=== PATIENT | female | born 1985 | race Caucasian/White ===

== ENCOUNTER 2016-09-24 11:38 | Emergency (ER) | payer OTHER ==
[~2016-09-24] VITALS: Ht 160 cm; Wt 72.1 kg
[2016-09-24] MEDS ORDERED: IV NORMAL SALINE 1000ML BAG 1,000 ML IV SCH (11:42)
[2016-09-24] MEDS ORDERED: ONDANSETRON PF 4 MG/2 ML VIAL. IV ONE (11:45)
[2016-09-24] MEDS ORDERED: FAMOTIDINE 20 MG/2 ML VIAL IVP ONE (11:45)
[2016-09-24 11:50] VITALS: BP 125/58
[2016-09-24] MEDS ORDERED: fentaNYL PF VIAL 100 MCG/2 ML VIAL IV PRN (12:00)
[2016-09-24 12:31] LABS: BILIRUBIN,URINE NEGATIVE (NEG); GLUCOSE,URINE NEGATIVE (NEG); NITRITE,URINE NEGATIVE (NEG); PROTEIN,URINE NEGATIVE (NEG-TRACE); UROBILINOGEN,URINE 0.2 mg/dL (0.2 mg/dL)
[2016-09-24 12:33] LABS: BASO % 0 % (0-3); EOS % 1 % (0-3); HEMATOCRIT 41.6 % (36.0-47.0); LYMPH # 1.9 x10^3/uL (1.0-4.8); LYMPH % 19 % (24-48); MEAN CORPUSCULAR HEMOGLOBIN 32 pg (25-35); MEAN CORPUSCULAR HGB CONC 34 g/dL (31-37); MEAN CORPUSCULAR VOLUME 95 fL (79-100); MONO % 6 % (0-9); NEUT % 73 % (31-73); PLATELET COUNT 196 x10^3/uL (140-400); RED BLOOD COUNT 4.36 x10^6/uL (3.50-5.40); RED CELL DISTRIBUTION WIDTH 12.9 % (11.5-14.5); WHITE BLOOD COUNT 9.8 x10^3/uL (4.0-11.0)
[2016-09-24 12:35] LABS: CALCIUM 9.6 mg/dL (8.5-10.1); CREATININE 0.8 mg/dL (0.6-1.0); GFR 85.4
[2016-09-24 12:37] LABS: BARBITURATES NEG (NEG); BENZODIAZEPINES NEG (NEG); CANNABINOIDS NEG (NEG); COCAINE NEG (NEG); METHADONE NEG (NEG); OPIATES NEG (NEG); PHENCYCLIDINE NEG (NEG)
[2016-09-24 12:41] LABS: ALBUMIN 4.4 g/dL (3.4-5.0); DIRECT BILIRUBIN 0.3 mg/dL (0.0-0.2); TOTAL BILIRUBIN 1.1 mg/dL (0.2-1.0); TOTAL PROTEIN 7.8 g/dL (6.4-8.2)
[2016-09-24 12:42] LABS: BACTERIA,URINE MANY /HPF (0-FEW); SQUAMOUS EPITHELIAL CELL,UR MANY /LPF
[2016-09-24] MEDS ORDERED: CONTRAST GIVEN MC PRN (13:00)
[2016-09-24] MEDS ORDERED: IOHEXOL 300 MG/ML 75 ML VIAL IV ONE (13:00)
--- NOTE | 2016-09-24 13:50 | RAD ---
Indication left upper quadrant pain. Nausea. Contrast imaging through the abdomen and pelvis was performed. 75 cc of Omnipaque 300 was administered intravenously. No oral contrast was administered. Note is made of a previous examination 5 years ago. The lung bases are clear. The liver and spleen appear unremarkable. The gallbladder is largely contracted but grossly normal. No pancreatic abnormality is seen. No adrenal or renal pathology is seen. No mass inflammatory process or acute finding in the abdomen is apparent. In the pelvis no mass inflammatory process or acute finding is seen. IUD is noted. IMPRESSION: No acute or significant finding seen in the abdomen or pelvis
[2016-09-24] MEDS ORDERED: FAMO20TA5 PO (14:18)
--- NOTE | 2016-09-24 14:18 | PHYS DOC ---
Past Medical History Past Medical History: Other Additional Past Medical Histor: ENDOMETRIOSIS Past Surgical History: Other Additional Past Surgical Histo: LAPAROSCOPYx3 Alcohol Use: Heavy Drug Use: None Adult General Chief Complaint Chief Complaint: ABDOMINAL PAIN HPI HPI Patient is a 30 year old female who presents from urgent care clinic with left upper quadrant pain associated bloating. States she felt constipated yesterday associated with bloating, so she took MiraLAX that resulted in a bowel movement. She notes constant left upper quadrant abdominal pain that is severe, achy, nonradiating. She denies nausea or vomiting, fever or chills, dark or bloody stools, dysuria, hematuria, back pain, chest pain, cough, dyspnea. She does note recent alcohol use. She has no aggravating or alleviating factors. Review of Systems Review of Systems Constitutional: Denies fever or chills [] Eyes: Denies change in visual acuity, redness, or eye pain [] HENT: Denies nasal congestion or sore throat [] Respiratory: Denies cough or shortness of breath [] Cardiovascular: No additional information not addressed in HPI [] GI: Denies nausea, vomiting, bloody stools or diarrhea [] : Denies dysuria or hematuria [] Musculoskeletal: Denies back pain or joint pain [] Integument: Denies rash or skin lesions [] Neurologic: Denies headache, focal weakness or sensory changes [] Endocrine: Denies polyuria or polydipsia [] Current Medications Current Medications Current Medications Medications (Trade) Dose Ordered Sig/Dano Start Time Stop Time Status Last Admin Dose Admin Famotidine (Pepcid) 20 mg 1X ONCE 09/24/16 11:45 09/24/16 12:02 DC 09/24/16 12:13 20 MG Fentanyl Citrate (Fentanyl 2ml Vial) 50 mcg PRN Q15MIN PRN 09/24/16 12:00 09/24/16 14:40 DC 09/24/16 12:12 50 MCG Info (Do NOT chart on this entry -- for MONITORING) 1 each PRN DAILY PRN 09/24/16 13:00 09/24/16 14:40 DC Iohexol (Omnipaque 300 Mg/ml) 75 ml 1X ONCE 09/24/16 13:00 09/24/16 13:01 DC 09/24/16 13:13 75 ML Multi-Ingredient Mouthwash/Gargle (Gi Cocktail Single Dose) 15 ml 1X ONCE 09/24/16 14:30 09/24/16 14:31 DC 09/24/16 14:21 15 ML Ondansetron HCl (Zofran) 4 mg 1X ONCE 09/24/16 11:45 09/24/16 12:02 DC 09/24/16 12:12 4 MG Sodium Chloride 1,000 ml @ 1,000 mls/hr Q1H 09/24/16 11:42 09/24/16 12:41 DC 09/24/16 12:12 1,000 MLS/HR Allergies Allergies Allergies Coded Allergies Type Severity Reaction Last Updated Verified Penicillins Allergy Intermediate HIVES 09/24/16 Yes Sulfa (Sulfonamide Antibiotics) Allergy Intermediate HIVES 09/24/16 Yes Physical Exam Physical Exam Constitutional: Well developed, well nourished, no acute distress, non-toxic appearance. [] HENT: Normocephalic, atraumatic, bilateral external ears normal, oropharynx moist, nose normal. [] Eyes: PERRLA, EOMI. [] Neck: Normal range of motion, supple. [] Cardiovascular:Heart rate regular rhythm [] Lungs & Thorax: Bilateral breath sounds clear to auscultation [] Abdomen: Bowel sounds normal, soft, moderate left upper quadrant tenderness, no guarding or rebound. [] Skin: Warm, dry, no erythema, no rash. [] Back: No tenderness, no CVA tenderness. [] Extremities: No tenderness, ROM intact, no edema. [] Neurologic: Alert and oriented X 3, normal motor function, normal sensory function, no focal deficits noted. [] Psychologic: Affect normal, judgement normal, mood normal. [] Current Patient Data Vital Signs Vital Signs Date Time Temp Pulse Resp B/P (MAP) Pulse Ox O2 Delivery O2 Flow Rate FiO2 09/24/16 11:50 98.0 108 18 125/58 (80) 98 Room Air 98.0 Lab Values Laboratory Tests Test 09/24/16 11:24 09/24/16 12:03 09/24/16 12:10 POC Urine HCG, Qualitative Hcg negative (Negative) Urine Collection Type Unknown Urine Color Yellow Urine Clarity Clear Urine pH 6.0 Urine Specific [place] 1.020 Urine Protein Negative mg/dL (NEG-TRACE) Urine Glucose (UA) Negative mg/dL (NEG) Urine Ketones (Stick) Negative mg/dL (NEG) Urine Blood Trace (NEG) Urine Nitrite Negative (NEG) Urine Bilirubin Negative (NEG) Urine Urobilinogen Dipstick 0.2 mg/dL (0.2 mg/dL) Urine Leukocyte Esterase Moderate (NEG) Urine RBC 1-2 /HPF (0-2) Urine WBC 11-20 /HPF (0-4) Urine Squamous Epithelial Cells Many /LPF Urine Bacteria Many /HPF (0-FEW) Urine Mucus Marked /LPF Urine Opiates Screen Neg (NEG) Urine Methadone Screen Neg (NEG) Urine Barbiturates Neg (NEG) Urine Phencyclidine Screen Neg (NEG) Urine Amphetamine/Methamphetamine Neg (NEG) Urine Benzodiazepines Screen Neg (NEG) Urine Cocaine Screen Neg (NEG) Urine Cannabinoids Screen Neg (NEG) Urine Ethyl Alcohol Neg (NEG) White Blood Count 9.8 x10^3/uL (4.0-11.0) Red Blood Count 4.36 x10^6/uL (3.50-5.40) Hemoglobin 14.0 g/dL (12.0-15.5) Hematocrit 41.6 % (36.0-47.0) Mean Corpuscular Volume 95 fL (79-100) Mean Corpuscular Hemoglobin 32 pg (25-35) Mean Corpuscular Hemoglobin Concent 34 g/dL (31-37) Red Cell Distribution Width 12.9 % (11.5-14.5) Platelet Count 196 x10^3/uL (140-400) Neutrophils (%) (Auto) 73 % (31-73) Lymphocytes (%) (Auto) 19 % (24-48) L Monocytes (%) (Auto) 6 % (0-9) Eosinophils (%) (Auto) 1 % (0-3) Basophils (%) (Auto) 0 % (0-3) Neutrophils # (Auto) 7.2 x10^3uL (1.8-7.7) Lymphocytes # (Auto) 1.9 x10^3/uL (1.0-4.8) Monocytes # (Auto) 0.6 x10^3/uL (0.0-1.1) Eosinophils # (Auto) 0.1 x10^3/uL (0.0-0.7) Basophils # (Auto) 0.0 x10^3/uL (0.0-0.2) Sodium Level 139 mmol/L (136-145) Potassium Level 4.0 mmol/L (3.5-5.1) Chloride Level 101 mmol/L (98-107) Carbon Dioxide Level 29 mmol/L (21-32) Anion Gap 9 (6-14) Blood Urea Nitrogen 12 mg/dL (7-20) Creatinine 0.8 mg/dL (0.6-1.0) Estimated GFR (Cockcroft-Gault) 85.4 Glucose Level 94 mg/dL (70-99) Calcium Level 9.6 mg/dL (8.5-10.1) Total Bilirubin 1.1 mg/dL (0.2-1.0) H Direct Bilirubin 0.3 mg/dL (0.0-0.2) H Aspartate Amino Transferase (AST) 18 U/L (15-37) Alanine Aminotransferase (ALT) 28 U/L (14-59) Alkaline Phosphatase 106 U/L (46-116) Total Protein 7.8 g/dL (6.4-8.2) Albumin 4.4 g/dL (3.4-5.0) Lipase 124 U/L (73-393) Laboratory Tests 09/24/16 12:10 Laboratory Tests 09/24/16 12:10 Radiology/Procedures Radiology/Procedures CT abdomen and pelvis with IV contrast IMPRESSION: No acute or significant finding seen in the abdomen or pelvis DICTATED and SIGNED BY: PRESLEY GUTIERREZ MD DATE: 09/24/16 4334 Course & Med Decision Making Course & Med Decision Making Pertinent Labs and Imaging studies reviewed. (See chart for details) Workup is unremarkable. She is feeling better after medications. Discussed she likely has gastritis related to alcohol use. Discussed to avoid NSAIDs and alcohol. Return precautions given. She understands and agrees with plan. Dragon Disclaimer Dragon Disclaimer This electronic medical record was generated, in whole or in part, using a voice recognition dictation system. Departure Departure Impression: Primary Impression: Left upper quadrant abdominal pain of unknown etiology Disposition: 01 HOME, SELF-CARE Condition: STABLE Referrals: NO PCP (PCP) Patient Instructions: Gastritis, Adult, [id number] Additional Instructions: Take nitrofurantoin for possible UTI. Take famotidine to help with likely gastritis. Avoid alcohol, ibuprofen and naproxen as this may make her pain worse. Follow-up with your primary care doctor within one week. Please call GI clinic for appointment at [phone]. Return for any concerns. Scripts Nitrofurantoin Macrocrystal (NITROFURANTOIN) 100 Mg Capsule 1 CAP PO BID, #10 CAP Prov: Bernice THOMAS MD 09/24/16 Famotidine (FAMOTIDINE) 20 Mg Tablet 20 MG PO BID, #30 TAB Prov: Bernice THOMAS MD 09/24/16 Bernice THOMAS MD September 24, 2016 14:18
[2016-09-24] MEDS ORDERED: LIDO:MAALOX:DONNATAL 1:1:1 15 ML SINGLE DOSE SWSW ONE (14:30)
[2016-09-24] MEDS ORDERED: NITR100C PO (14:36)
== END 2016-09-24 14:40 | disposition home or self-care (01) ==
LOC: ER 11:38
DX: R10.12 Left upper quadrant pain (principal); R14.0 Abdominal distension (gaseous); K59.00 Constipation, unspecified; Z88.0 Allergy status to penicillin; Z88.2 Allergy status to sulfonamides
CPT/HCPCS: 36415; 74177; 80048; 80076; 80305; 80320; 81001; 81025; 83690; 85027; 87086; 96361; 96374; 96375; 99285; J2405; J3010; J7030; Q9967; S0028; G0481

== ENCOUNTER → 2016-10-02 | Day surgery (SDC) | payer BC ==
[~2016-10-02] MED LIST: CYAN10005 PO; FAMO20TA5 PO; HYDROmorphone 2 MG/ML VIAL IV PRN; IV RINGERS,LACTATED 1000ML 1,000 ML IV SCH; LIDOCAINE 1% 1 ML SYRINGE. ID PRN; LIDOCAINE 2% PF Vial for OR 5 ML VIAL. ONE; MORPHINE SULFATE 2 MG/ML DISP.SYRIN. IV PRN; NITR100C PO; ONDANSETRON PF 4 MG/2 ML VIAL. IV PRN; PROCHLORPERAZINE 10 MG/2 ML VIAL. IV PRN; PROPOFOL 20 ML IV ONE; fentaNYL PF VIAL 100 MCG/2 ML VIAL IV PRN
[2016-10-02 10:17] LABS: NEG OBC UR NEG; POS OBC UR POS
[2016-10-02 12:00] VITALS: BP 105/65
--- NOTE | 2016-10-06 13:44 | PATHOLOGY ---
PATHOLOGY REPORT * * * * * * * * FINAL DIAGNOSIS: A. Small bowel biopsy: - No significant pathologic abnormalities. B. Gastric biopsy, antrum: - Mild chronic gastritis. C. Esophageal biopsy, distal esophagus: - Segments of hyperplastic squamous esophageal mucosa and esophagogastric mucosa showing chronic inflammation, consistent with reflux esophagitis. COMMENT: Sections of the small bowel biopsy reveal segments of duodenal and small intestine mucosa. Where best oriented, the mucosal villi appear normal. There are no sprue-like changes or significant inflammatory changes. Sections of the gastric biopsy reveal gastric antral and gastroduodenal mucosa showing mild chronic inflammation. An immunoperoxidase stain for Helicobacter is obtained. No Helicobacter organisms are identified. There is no evidence of malignancy. Sections of the distal esophageal biopsy reveal segments of tangentially oriented, hyperplastic squamous esophageal mucosa and esophagogastric mucosa showing mild to moderate chronic inflammation. The findings are consistent with reflux esophagitis. There is no evidence of Melendez's change, dysplasia, or malignancy. REPORT ELECTRONICALLY SIGNED BY: Bakari Alegria M.D. DATE/TIME: 10/06/2016 13:44 * * * * * * * * GROSS PATHOLOGY: A. Received in formalin labeled "Jono, Camillia N, small bowel BX," are 2 segments of subramanian soft tissue measuring 1.0 x 0.3 x 0.2 cm in aggregate dimensions and ranging from 0.5 to 0.5 cm in maximum dimension. The specimen is submitted entirely in cassette A1. B. Received in formalin labeled " Jono, Camillia N, gastric antrum BX," are 2 segments of subramanian soft tissue measuring 0.9 x 0.3 x 0.2 cm in aggregate dimensions and ranging from 0.2 to 0.7 cm in maximum dimension. The specimen is submitted entirely in cassette B1. C. Received in formalin labeled " Jono, Camillia N, distal esophagus BX," are 4 segments of subramanian soft tissue measuring 0.8 x 0.2 x 0.2 cm in aggregate dimensions and ranging from 0.2 to 0.2 cm in maximum dimension. The specimen is submitted entirely in cassette C1. (CALI; 10/03/2016) INITIAL CPT CODE(S): A; 74222 B; 23525, 28482 C; 19395 Professional services performed by [employer] [place] [address] Technical services performed by [facility] at [address] [place] [address], [address], [place] [address]. SPECIMEN(S) RECEIVED: A.Small bowel biopsy B.Gastric antral biopsy C.Distal esophageal biopsy CLINICAL HISTORY: Abdominal pain, bloating PATIENT: ZAID TOLENTINO /AGE: 712/02/1985 (Age: 30) PATIENT #: [id number] ALT CASE #: SPECIMEN COLLECTION DATE: 10/02/2016 SPECIMEN RECEIVED DATE: 10/02/2016 [facility] - [address] [place] [address] - PHONE: [phone] * * * END OF REPORT * * *
== END | disposition home or self-care (01) ==
LOC: ENDOS 09:32
PROVIDERS: ATTEND Internal Medicine Gastroenterology
DX: K29.70 Gastritis, unspecified, without bleeding (principal); K21.0 Gastro-esophageal reflux disease with esophagitis; Z88.0 Allergy status to penicillin; Z88.2 Allergy status to sulfonamides; Z83.3 Family history of diabetes mellitus; Z72.89 Other problems related to lifestyle; Z87.891 Personal history of nicotine dependence
CPT/HCPCS: 43239; 81025; 88305; 88342; J2704

== ENCOUNTER → 2016-10-09 | Outpatient (CLI) | payer BC ==
[2016-10-02 12:00] VITALS: BP 105/65
[~2016-10-09] VITALS: Ht 160 cm; Wt 72.1 kg
[~2016-10-09] MED LIST changes: -HYDROmorphone 2 MG/ML VIAL IV PRN; -IV RINGERS,LACTATED 1000ML 1,000 ML IV SCH; -LIDOCAINE 1% 1 ML SYRINGE. ID PRN; -LIDOCAINE 2% PF Vial for OR 5 ML VIAL. ONE; -MORPHINE SULFATE 2 MG/ML DISP.SYRIN. IV PRN; -ONDANSETRON PF 4 MG/2 ML VIAL. IV PRN; -PROCHLORPERAZINE 10 MG/2 ML VIAL. IV PRN; -PROPOFOL 20 ML IV ONE; +SINCALIDE 1.44 MCG in IV NORMAL SALINE 50ML 30 ML IV ONE; -fentaNYL PF VIAL 100 MCG/2 ML VIAL IV PRN
--- NOTE | 2016-10-09 15:09 | RAD ---
Radionuclide hepatobiliary scan with gallbladder ejection fraction, 10/09/2016: History: Epigastric pain Following IV injection of 5.5 mCi of technetium 99m Choletec there was prompt uptake of the radionuclide from the blood stream by the liver. Activity is present in the bile ducts and gallbladder at 10 minutes. Small bowel activity develops at 15 minutes. Additional imaging of the gallbladder was then performed following IV injection of 1.4 mcg of cholecystokinin. The gallbladder ejection fraction was calculated at 35%. 30-50% is considered to be the borderline low range. IMPRESSION: 1. No evidence of cystic duct or common bile duct obstruction. 2. The gallbladder ejection fraction is 35%.
== END | disposition home or self-care (01) ==
LOC: NM 11:29
PROVIDERS: ATTEND Internal Medicine Gastroenterology
DX: R10.11 Right upper quadrant pain (principal); R11.10 Vomiting, unspecified
CPT/HCPCS: 78226; 96374; 96375; A9537; J2805

== ENCOUNTER 2016-10-29 09:54 | Day surgery (SDC) | payer BC ==
[~2016-10-29] VITALS: Ht 160 cm; Wt 158.8 kg
[~2016-10-29 09:54] MED LIST changes: +BUPIVACAINE-EPI 0.5%-1:200000 50 ML VIAL. ONE; +DESFLURANE 61 TO 120 MINUTES IH ONE; +DEXAMETHASONE SOD PHOS 20 MG/5 ML VIAL. ONE; +GLUCAGON,HUMAN RECOMBINANT 1 MG/ML VIAL. ONE; +HYDROmorphone 2 MG/ML VIAL IV PRN; +IOHEXOL 300 MG/ML 50 ML VIAL. ONE; +IV RINGERS,LACTATED 1000ML 1,000 ML IV SCH; +LIDOCAINE 1% 1 ML SYRINGE. ID PRN; +LIDOCAINE 2% PF Vial for OR 5 ML VIAL. ONE; +MIDAZOLAM HCL/PF 2 MG/2 ML VIAL. ONE; +MORPHINE SULFATE 2 MG/ML DISP.SYRIN. IV PRN; +MULT-208 PO; +OMEP40CA5 PO; +ONDANSETRON PF 4 MG/2 ML VIAL. IV PRN; +ONDANSETRON PF 4 MG/2 ML VIAL. ONE; +PROCHLORPERAZINE 10 MG/2 ML VIAL. IV PRN; +PROPOFOL 20 ML IV ONE; +ROCURONIUM 50 MG/5 ML VIAL. ONE; -SINCALIDE 1.44 MCG in IV NORMAL SALINE 50ML 30 ML IV ONE; +SURGICEL HEMOSTAT 4X8 EACH. ONE; +fentaNYL PF VIAL 100 MCG/2 ML VIAL IV PRN; +fentaNYL PF VIAL 100 MCG/2 ML VIAL ONE
[2016-10-29 10:56] LABS: NEG OBC UR NEG; POS OBC UR POS
[2016-10-29 11:00] LABS: BASO % 0 % (0-3); EOS % 2 % (0-3); HEMATOCRIT 37.4 % (36.0-47.0); LYMPH # 1.5 x10^3/uL (1.0-4.8); LYMPH % 22 % (24-48); MEAN CORPUSCULAR HEMOGLOBIN 33 pg (25-35); MEAN CORPUSCULAR HGB CONC 35 g/dL (31-37); MEAN CORPUSCULAR VOLUME 93 fL (79-100); MONO % 8 % (0-9); NEUT % 68 % (31-73); PLATELET COUNT 167 x10^3/uL (140-400); RED BLOOD COUNT 4.02 x10^6/uL (3.50-5.40); RED CELL DISTRIBUTION WIDTH 12.5 % (11.5-14.5); WHITE BLOOD COUNT 6.8 x10^3/uL (4.0-11.0)
[2016-10-29 11:06] LABS: CALCIUM 8.8 mg/dL (8.5-10.1); CREATININE 0.8 mg/dL (0.6-1.0); GFR 85.4; POTASSIUM 3.7 mmol/L (3.5-5.1)
[2016-10-29 11:12] LABS: ALBUMIN 3.8 g/dL (3.4-5.0); TOTAL BILIRUBIN 0.8 mg/dL (0.2-1.0)
[2016-10-29] MEDS ORDERED: fentaNYL PF VIAL 100 MCG/2 ML VIAL ONE (11:17)
--- NOTE | 2016-10-29 11:49 | RAD ---
Indication: Intraoperative cholangiogram. Fluoroscopy was provided for intraoperative cholangiogram. Contrast has been injected via the cystic duct remnant. There is opacification of intrahepatic and extrahepatic bile ducts. No filling defects are seen to suggest retained stone. Contrast passes into the duodenum. 8 seconds of fluoroscopy time was utilized. 3 images were obtained. Impression: No evidence of retained common duct stone.
[2016-10-29] MEDS ORDERED: NEOSTIGMINE METHYLSULFATE 5 MG/5 ML SYRINGE. ONE (11:58)
[2016-10-29] MEDS ORDERED: GLYCOPYRROLATE 1 MG/5 ML VIAL. ONE (11:58)
--- NOTE | 2016-10-29 12:27 | DISCH ---
DISCHARGE INSTRUCTIONS Condition on Discharge Condition on Discharge: Stable Activity After Discharge Activity Instructions for Disc: Activity as tolerated, Avoid exertion Driving Instructions after Dis: Do not drive (3-4 days) Wound Incision Care Wound/Incision Care: Ice to area for comfort Other wound/incision instructi: september shower Thursday Follow-Up Follow up with: Anup next week TASHA MCGUIRE MD Oct 29, 2016 12:27
--- NOTE | 2016-10-29 12:29 | PDOC ---
BRIEF OPERATIVE NOTE Date: Oct 29, 2016 Pre-Op Diagnosis biliary dyskinesia Post-Op Diagnosis same Procedure Performed l/s vaibhav with cholangiograms Surgeon Anup Anesthesia Type: General Blood Loss 20cc IV Fluid 1300cc Specimens Obtained GB Findings normal grams, lateral cystic artery Complications none TASHA MCGUIRE MD Oct 29, 2016 12:29
[2016-10-29] MEDS ORDERED: oxyCODONE/APAP 5/325 1 TAB TABLET PO ONE (12:45)
[2016-10-29] MEDS ORDERED: OXYC-323 PO (12:51)
[2016-10-29] MEDS ORDERED: DOCU-150 PO (12:51)
[2016-10-29 15:00] VITALS: BP 106/68
--- NOTE | 2016-10-30 17:21 | PATHOLOGY ---
PATHOLOGY REPORT * * * * * * * * FINAL DIAGNOSIS: Gallbladder, laparoscopic cholecystectomy: - Congestion and focal slight chronic inflammation. COMMENT: There are no calculi identified within the gallbladder lumen or specimen container. Sections of the gallbladder show congestion and focal slight chronic inflammation. There is no evidence of malignancy. (JPM/db; 10/30/2016) REPORT ELECTRONICALLY SIGNED BY: Bakari Alegria M.D. DATE/TIME: 10/30/2016 17:21 * * * * * * * * GROSS PATHOLOGY: Received in formalin labeled "Jd Tolentino, gallbladder and contents," is an 8.0 x 2.4 x 2.0 cm, intact gallbladder with dark purple cain serosal surfaces. Opening the gallbladder reveals dark brown velvety mucosa and an average wall thickness of 0.3 cm. Calculi are not present and no masses are noted grossly. Mobility Architect sections from the body and fundus are submitted along with the proximal margin in cassette A1. (JPM; 10/29/16) INITIAL CPT CODE(S): A; 07677 Professional services performed [place] [facility] [address] Technical services performed by [facility] at [address] [place] [address] [address], [place] [address]. SPECIMEN(S) RECEIVED: A.Gallbladder sac with contents CLINICAL HISTORY: Biliary dyskinesia PATIENT: JD TOLENTINO Kiran /AGE: 712/02/1985 (Age: 30) PATIENT #: [id number] ALT CASE #: SPECIMEN COLLECTION DATE: 10/29/2016 SPECIMEN RECEIVED DATE: 10/29/2016 [facility] - [address] [place] [address] - PHONE: [phone] * * * END OF REPORT * * *
--- NOTE | 2016-11-11 15:00 | PDOC4 ---
Operative Note Operative Note Date of surgery: October 29, 2016 Preoperative diagnosis: Biliary dyskinesia Postop diagnosis: Same Procedure: Laparoscopic cholecystectomy with cholangiograms Surgeon: Anup Ruiz.: Aide ALBERT Anesthesia: Gen. endotracheal IV fluids: 1300 EBL: 20 mL Operative findings: Gallbladder was supple, cholangiograms were normal, the cystic artery was lateral to the cystic duct. Indications: Jd is a 30-year-old with epigastric and postprandial pain. PIPIDA scan shows a low ejection fraction. She is here for cholecystectomy. Operative report: Patient brought to the operating suite and given a general endotracheal anesthetic. An infraumbilical incision was infiltrated with local anesthetic and a 5 mm Visiport used to gain access into the abdominal cavity taking care to avoid injury to abdominal contents. Pneumoperitoneum established , camera inserted, abdomen expected with results as noted above With the table in reverse Trendelenburg rolled to the left the epigastric and midclavicular ports were placed under direct vision. An "alligator" grasper was used in the lateral port position and the gallbladder was retracted superio- laterally. The cystic artery and cystic duct were identified. The cystic artery was clipped and divided to expose the cystic duct for cholangiograms. Cystic duct clipped on the gallbladder side. Cholangiograms were made. These were normal. In light of this the catheter was removed the cystic duct was clipped and divided taking care to avoid injury or compromise of the common duct Gallbladder free from the liver bed with cautery dissection and placed in an Endo Catch bag. Good hemostasis was present. Table return to level. Gallbladder delivered through the epigastric incision. Incision closed with interrupted 0 Vicryl suture. The abdominal pressure decreased to 6 cm water. No bleeding from the epigastric closure or from the midclavicular port after its removal or from the site of the "alligator" grasper. Abdomen decompressed camera slowly removed no bleeding seen. Skin incisions closed with subcuticular 4-0 Monocryl. Sterile dressings applied. Patient awakened from her anesthetic and taken to the recovery room in satisfactory condition. TASHA MCGUIRE MD Nov 11, 2016 14:59
== END 2016-10-29 15:20 | disposition home or self-care (01) ==
LOC: SURG 09:54
PROVIDERS: ATTEND Surgery
DX: K82.8 Other specified diseases of gallbladder (principal); K21.9 Gastro-esophageal reflux disease without esophagitis; E66.9 Obesity, unspecified; F17.200 Nicotine dependence, unspecified, uncomplicated; Z88.1 Allergy status to other antibiotic agents; Z88.0 Allergy status to penicillin; Z88.2 Allergy status to sulfonamides; Z68.28 Body mass index [BMI] 28.0-28.9, adult; Z87.440 Personal history of urinary (tract) infections; Z72.89 Other problems related to lifestyle
CPT/HCPCS: 36415; 47563; 74300; 80048; 81025; 82040; 82247; 85027; 88304; J0780; J1100; J1610; J1956; J2250; J2405; J2704; J2710; J3010; J3490; J7030; J7120; Q9967; J2001

== ENCOUNTER → 2017-09-16 | Outpatient (CLI) | payer OTHER ==
[2017-09-16] MEDS: GADOBUTROL 7.5 MMOL/7.5 ML VIAL IV (15:10)
== END | disposition home or self-care (01) ==
LOC: MRI 14:48
DX: H46.12 Retrobulbar neuritis, left eye (principal); J32.9 Chronic sinusitis, unspecified
CPT/HCPCS: 70543; 70553; A9585

== ENCOUNTER → 2018-07-29 | Outpatient (CLI) | payer OTHER ==
[~2018-07-29] MED LIST changes: -BUPIVACAINE-EPI 0.5%-1:200000 50 ML VIAL. ONE; -DESFLURANE 61 TO 120 MINUTES IH ONE; -DEXAMETHASONE SOD PHOS 20 MG/5 ML VIAL. ONE; +DOCU-150 PO; -GLUCAGON,HUMAN RECOMBINANT 1 MG/ML VIAL. ONE; -HYDROmorphone 2 MG/ML VIAL IV PRN; -IOHEXOL 300 MG/ML 50 ML VIAL. ONE; -IV RINGERS,LACTATED 1000ML 1,000 ML IV SCH; -LIDOCAINE 1% 1 ML SYRINGE. ID PRN; -LIDOCAINE 2% PF Vial for OR 5 ML VIAL. ONE; -MIDAZOLAM HCL/PF 2 MG/2 ML VIAL. ONE; -MORPHINE SULFATE 2 MG/ML DISP.SYRIN. IV PRN; -ONDANSETRON PF 4 MG/2 ML VIAL. IV PRN; -ONDANSETRON PF 4 MG/2 ML VIAL. ONE; +OXYC1TAB15 PO; -PROCHLORPERAZINE 10 MG/2 ML VIAL. IV PRN; -PROPOFOL 20 ML IV ONE; -ROCURONIUM 50 MG/5 ML VIAL. ONE; -SURGICEL HEMOSTAT 4X8 EACH. ONE; -fentaNYL PF VIAL 100 MCG/2 ML VIAL IV PRN; -fentaNYL PF VIAL 100 MCG/2 ML VIAL ONE
[2018-08-03 10:20] LABS: ANA INTERP Positive (.)
== END | disposition home or self-care (01) ==
LOC: LAB 13:50
PROVIDERS: ATTEND Psychiatry & Neurology Neurology with Special Qualifications in Child Neurology
DX: G43.019 Migraine without aura, intractable, without status migrainosus (principal); H46.9 Unspecified optic neuritis
CPT/HCPCS: 36415; 82306; 82607; 82746; 84443; 85651; 86038; 86140

== ENCOUNTER → 2018-08-06 | Outpatient (CLI) | payer OTHER ==
[~2018-08-06] MED LIST changes: +GADOBUTROL 7.5 MMOL/7.5 ML VIAL IV ONE
--- NOTE | 2018-08-06 12:10 | KCIC ---
MRI Brain with and without contrast History: Intractable migraine headache, headache behind the left eye, dizziness, optic neuritis Technique: Multiplanar, multi sequential pre and postcontrast MR imaging was performed of the brain. Comparison: September 16, 2017 Findings: There is some motion degradation. There is no evidence of recent infarct or cytotoxic edema. The ventricles, sulci, and cisterns are within normal limits in size and configuration. There is no significant midline shift, intraaxial mass effect, or focal abnormal extra-axial fluid collection. There is no significant signal abnormality of the brain parenchyma. There is new nodular nodular parenchymal or leptomeningeal enhancement. There is incidental left temporal parietal developmental venous anomaly. There is preservation of the major intracranial flow-voids at the skull base. The cerebellar tonsils are normal in location. There is no significant abnormality of the pineal gland or pituitary gland. There is patchy mild ethmoid air cell and anterior sphenoid sinus mucosal thickening, also minimally of the maxillary and frontal sinuses. The mastoid air cells are aerated. There is preserved marrow signal of the clivus. Impression: 1. There is no significant intracranial abnormality. 2. There is minimal paranasal sinus mucosal thickening. Electronically signed by: Garrett Cuba MD (08/06/2018 12:07 PM) [id number]
== END | disposition home or self-care (01) ==
LOC: KCIC MRI 10:57
PROVIDERS: ATTEND Psychiatry & Neurology Neurology with Special Qualifications in Child Neurology
DX: G43.819 Other migraine, intractable, without status migrainosus (principal); H46.9 Unspecified optic neuritis; J34.89 Other specified disorders of nose and nasal sinuses
CPT/HCPCS: 70553; A9585